=== PATIENT | male | born 1985 | race Caucasian/White ===

== ENCOUNTER 2018-07-04 13:14 | Emergency (ER) | payer MEDICAID, OTHER ==
[~2018-07-04] VITALS: Ht 200.7 cm; Wt 136.0 kg
[2018-07-04] MEDS ORDERED: IBUPROFEN 800MG TABLET PO ONE (16:00)
[2018-07-04 17:23] VITALS: BP 145/88
== END 2018-07-04 17:27 | disposition home or self-care (01) ==
LOC: ER 13:14
DX: S90.02XA Contusion of left ankle, initial encounter (principal); S90.32XA Contusion of left foot, initial encounter; G62.9 Polyneuropathy, unspecified; X50.1XXA Overexertion from prolonged static or awkward postures, initial encounter; Y93.89 Activity, other specified; Y92.488 Other paved roadways as the place of occurrence of the external cause
CPT/HCPCS: 73610; 73630; 99284

== ENCOUNTER 2020-06-25 17:13 | Emergency (ER) | payer OTHER ==
[~2020-06-25] VITALS: Ht 200.7 cm; Wt 127.0 kg
[2020-06-25] MEDS ORDERED: IBUPROFEN 600MG TABLET PO ONE (18:30)
[2020-06-25 19:07] VITALS: BP 166/79
== END 2020-06-25 19:19 | disposition home or self-care (01) ==
LOC: ER 17:13
DX: L03.116 Cellulitis of left lower limb (principal)
CPT/HCPCS: 73610; 73630; 93971; 99284

== ENCOUNTER 2021-12-11 10:03 | Emergency (ER) | payer OTHER ==
[~2021-12-11] VITALS: Ht 200.7 cm; Wt 140.0 kg
[2021-12-11] MEDS ORDERED: DIAZEPAM 5 MG TABLET PO ONE (10:30)
[2021-12-11] MEDS ORDERED: KETOROLAC 60MG/2ML VIAL IM ONE (10:30)
[2021-12-11] MEDS ORDERED: PREDNISONE 20MG TABLET PO ONE (10:30)
[2021-12-11] MEDS ORDERED: CYCL10TA7 MT (12:07)
[2021-12-11] MEDS ORDERED: NAPR-681 MT (12:07)
[2021-12-11 12:28] VITALS: BP 118/86
== END 2021-12-11 12:29 | disposition home or self-care (01) ==
LOC: ER 10:18
DX: M54.32 Sciatica, left side (principal); Z98.890 Other specified postprocedural states
CPT/HCPCS: 96372; 99283; J1885; J7512